=== PATIENT | male | born 1985 | race Hispanic/Latino ===

== ENCOUNTER 2022-01-15 02:15 | Emergency (ER) | payer OTHER ==
[~2022-01-15] VITALS: Ht 180.3 cm; Wt 113.4 kg
[2022-01-15] MEDS ORDERED: 0.9%NACL 1000ML 1,000 ML IV ONE (03:00)
[2022-01-15 03:26] LABS: BASOPHILS % (AUTO) 0.2 % (0.0-5.0); EOSINOPHILS % (AUTO) 1.3 % (0.0-8.0); HEMATOCRIT 41.6 % (42-54); LYMPHOCYTES % (AUTO) 21.7 % (21.0-51.0); MEAN CORPUSCULAR HEMOGLOBIN 26.6 pg (27.0-33.0); MEAN CORPUSCULAR VOLUME 83.2 fL (79-99); MONOCYTES % (AUTO) 6.6 % (3.0-13.0); PLATELET COUNT (AUTO) 150 K/uL (130-400); RED CELL DISTRIBUTION WIDTH 13.4 % (11.0-15.5); WHITE BLOOD COUNT (AUTO) 5.3 K/uL (4.8-10.8)
[2022-01-15 03:36] LABS: CARBON DIOXIDE 26 mmol/L (21-32); CHLORIDE 104 mmol/L (101-111); CREATININE 1.2 mg/dL (0.5-1.5); GLOMERULAR FILTR. RATE CALC 73 mL/min (>60); GLUCOSE,RANDOM 111 mg/dL (70-105); POTASSIUM 3.8 mmol/L (3.5-5.1); SODIUM SERUM 137 mmol/L (136-145); UREA NITROGEN, BLOOD 13 mg/dL (7-18)
[2022-01-15 03:40] LABS: ALANINE AMINOTRANSFERASE 63 U/L (12-78); ALBUMIN 3.8 g/dL (3.5-5.0); ALCOHOL, BLOOD 81 mg/dL (0-10); ASPARTATE AMINOTRANSFERASE 25 U/L (10-37); BILIRUBIN,TOTAL 0.3 mg/dL (0.2-1.0); TOTAL PROTEIN, SERUM 7.2 g/dL (6.0-8.3)
[2022-01-15 03:42] LABS: LIPASE < 50 U/L (114-286)
[2022-01-15 03:59] LABS: APPEARANCE,URINE Clear (CLEAR); BILIRUBIN,URINE Negative (NEGATIVE); COLOR,URINE Yellow (YELLOW); GLUCOSE, URINE (UA) Negative (NEGATIVE); KETONES,URINE Negative (NEGATIVE); LEUKOCYTE ESTERASE ,URINE Negative (NEGATIVE); NITRATE,URINE Negative (NEGATIVE); OCCULT BLOOD,URINE Negative (NEGATIVE); PH,URINE 5.5 (5.0-8.0); PROTEIN,URINE Negative (NEGATIVE); UROBILINOGEN,URINE 0.2 mg/dL (0.2-1.0)
[2022-01-15 04:06] LABS: AMPHET/METH SCREEN,URINE NEGATIVE (NEGATIVE); BARBITURATE SCREEN, URINE NEGATIVE (NEGATIVE); BENZODIAZEPINES SCREEN,URINE NEGATIVE (NEGATIVE); CANNABINOID SCREEN,URINE POSITIVE (NEGATIVE); COCAINE SCREEN,URINE NEGATIVE (NEGATIVE); OPIATE SCREEN,URINE NEGATIVE (NEGATIVE); PHENCYCLIDINE SCREEN,URINE NEGATIVE (NEGATIVE)
[2022-01-15] MEDS ORDERED: ONDA4TAB10 PO (04:54)
[2022-01-15 04:57] VITALS: BP 132/78
== END 2022-01-15 05:07 | disposition home or self-care (01) ==
LOC: EDH 02:15
DX: F10.129 Alcohol abuse with intoxication, unspecified (principal); E86.9 Volume depletion, unspecified; Z20.822 Contact with and (suspected) exposure to COVID-19
CPT/HCPCS: 36415; 80053; 80305; 81003; 83690; 85025; 87635; 87804 ×2; 96360; 99283; C9803; J7030

== ENCOUNTER 2024-08-22 03:50 | Emergency (ER) | payer SELFPAY ==
[~2024-08-22] VITALS: Ht 177.8 cm; Wt 99.8 kg
[~2024-08-22 03:50] MED LIST: ONDA-243 PO
--- NOTE | 2024-08-22 04:07 | NUR ---
PATIENT REFUSING BLOOD DRAWS AT THIS TIME.
[2024-08-22 04:20] LABS: ADD UA MICROSCOPIC NO; APPEARANCE,URINE CLEAR (CLEAR); BILIRUBIN,URINE NEGATIVE (NEGATIVE); COLOR,URINE COLORLESS (YELLOW); GLUCOSE, URINE (UA) NEGATIVE (NEGATIVE); KETONES,URINE NEGATIVE (NEGATIVE); LEUKOCYTE ESTERASE ,URINE NEGATIVE Leu/uL (NEGATIVE); NITRATE,URINE NEGATIVE (NEGATIVE); OCCULT BLOOD,URINE NEGATIVE (NEGATIVE); PH,URINE 5.5 (5.0-8.0); PROTEIN,URINE NEGATIVE (NEGATIVE); UROBILINOGEN,URINE 0.2 mg/dL (0.2-1.0)
--- NOTE | 2024-08-22 04:28 | ERN ---
ED Note History of Present Illness Stated Complaint: MEDICAL CLEARANCE, SI, LEFT ANKLE Chief Complaint: Multiple Complaints Time Seen by MD: 04:06 Dictation: This is a 38-year-old male who was brought by police department accompanied by anil for medical clearance. As per the report of the trooper patient was stopped during a traffic stop and he was very uncooperative had slurred speech and appeared intoxicated but was uncooperative and refused to do any tests of sobriety. He was eventually placed on arrest when he requested to use a kee potty and came out and indicated to the troopers that he twisted it is ankle. He denied any loss of consciousness. True per indicated that patient voiced suicidal ideations stating that he would want to end his life, if he had the troopers gun he would end it immediately. This was another reason why he was brought to the ER When I attempted to interview him he appeared angry blunt and refused to answer many questions. Patient refused any blood work. He did allow us to do EKG and x-ray of the ankle. He denied being at any mental health facility in the past denies any auditory hallucinations. Denies any homicidal ideations also. Patient was handcuffed to the back. He refused to answer any questions regarding alcohol ingestion He thought that the true per stopped him because he had a nice vehicle but did not want to tell me the details about his vehicle. When I asked him if I could examine his heart and lungs, he commented that I would be hearing a lot of cr sreedhar from his heart Temperature 98.1 pulse 118 respirations 20 blood pressure 128/82 with a pulse oximetry of 99% on room air Patient had an admission in the past 5 years ago with alcohol intoxication and basically spacing out at that time. Allergies: Coded Allergies: No Known Drug Allergies (Unverified Allergy, Unknown, 01/15/22) Home Meds Active Scripts Ondansetron (Ondansetron Odt) 4 Mg Tab.rapdis, 4 MG PO Q6HPRN, #20 TAB 0 Refills Prov:PAWAN THOMSON MD 01/15/22 Past Medical History Past Medical History: No Pertinent History Surgical History: None Social History: ETOH RN Note Reviewed/Agreed w/PFSH: Yes Review of System Dictation Constitutional: Negative for fever,chills, and weight loss Eyes: Negative for injury, pain,redness, and discharge ENT: Negative for injury,pain or swelling Cardiovascular: Negative for chest pain, palpitations, and edema Respiratory: Negative for shortness of breath, cough, and wheezing, Abdomen/GI: Negative for abdominal pain, nausea, vomiting, diarrhea, and constipation Back: Negative for injury and pain : Negative for injury, bleeding and discharge MS/Extremity: Negative for injury and deformity ankle pain left side Skin: Negative for rash, and discoloration Neuro: Negative for headache, weakness, numbness, tingling, and seizure Psych: Positive for suicide ideation, but denied homicidal ideation, and hallucinations Initial Vital Sign VS Vital Signs Date Time Temp Pulse Resp B/P (MAP) Pulse Ox O2 Delivery O2 Flow Rate FiO2 08/22/24 03:52 98.1 118 20 128/82 99 Room Air 08/22/24 06:28 0 21 Physical Exam Dictation General: awake, alert, NAD appears intoxicated very guarded in answering his limited questions Head/Face: Normocephalic, atraumatic Eyes: PERRL, EOMI, vision at baseline ENT: oral cavity clear, TMs clear, no signs of infection Neck: Trachea midline, supple, no nuchal rigidity Cardiovascular: RRR, normal S1/S2, No MRGs, no JVD Respiratory: CTAB, no respiratory distress, No rales or wheezes Abdomen: Soft, non-tender, non-distended, normal bowel sounds, no guarding or rebound. Skin: Warm, dry, normal turgor, no rash MS/Extremity: Pulses equal, no cyanosis, neurovascular intact, FROM left ankle- no obvious swelling erythema bruising. Neuro: COAx4, GCS 15, strength 5/5, CN 2-12 intact, normal cerebellar exam, normal gait, Psych: Normal behavior, mood, and affect normal Extremities-trace edema without any palpable cords, Homans sign is negative Results (Laboratory/Radiology) Laboratory/Radiology Laboratory Tests Test 08/22/24 04:07 08/22/24 05:49 08/22/24 09:20 08/22/24 11:13 Urine Color COLORLESS (YELLOW) Urine Appearance CLEAR (CLEAR) Urine pH 5.5 (5.0-8.0) Urine Specific [place]iba 1.002 (1.001-1.031) Urine Protein NEGATIVE mg/dL (NEGATIVE) Urine Glucose (UA) NEGATIVE mg/dL (NEGATIVE) Urine Ketones NEGATIVE mg/dL (NEGATIVE) Urine Occult Blood NEGATIVE (NEGATIVE) Urine Nitrate NEGATIVE (NEGATIVE) Urine Bilirubin NEGATIVE mg/dL (NEGATIVE) Urine Urobilinogen 0.2 mg/dL (0.2-1.0) Urine Leukocyte Esterase NEGATIVE Yenifer/uL Urine Opiates Screen NEGATIVE (NEGATIVE) Urine Barbiturates Screen NEGATIVE (NEGATIVE) Urine Phencyclidine Screen NEGATIVE (NEGATIVE) Urine Amphetamines Screen NEGATIVE (NEGATIVE) Urine Benzodiazepines Screen NEGATIVE (NEGATIVE) Urine Cocaine Screen NEGATIVE (NEGATIVE) Urine Marijuana (THC) Screen NEGATIVE (NEGATIVE) White Blood Count 6.1 K/uL (4.8-10.8) Red Blood Count 5.58 MIL/uL (4.50-6.20) Hemoglobin 15.6 g/dL (14.0-18.0) Hematocrit 46.7 % (42-54) Mean Corpuscular Volume 83.7 fL (79-99) Mean Corpuscular Hemoglobin 28.0 pg (27.0-33.0) Mean Corpuscular Hemoglobin Concent 33.4 g/dL (32.0-36.0) Red Cell Distribution Width 13.4 % (11.0-15.5) Platelet Count 175 K/uL (130-400) Mean Platelet Volume 10.4 fL (7.5-10.5) Immature Granulocyte % (Auto) 0.3 % (0-1) Neutrophils (%) (Auto) 66.0 % (40.0-77.0) Lymphocytes (%) (Auto) 25.0 % (21.0-51.0) Monocytes (%) (Auto) 7.0 % (3.0-13.0) Eosinophils (%) (Auto) 1.5 % (0.0-8.0) Basophils (%) (Auto) 0.2 % (0.0-5.0) Neutrophils # (Auto) 4.0 K/uL (1.8-7.7) Lymphocytes # (Auto) 1.5 K/uL (1.0-4.8) Monocytes # (Auto) 0.4 K/uL (0.1-1.0) Eosinophils # (Auto) 0.09 K/uL (0.00-0.70) Basophils # (Auto) 0.01 K/uL (0.00-0.20) Absolute Immature Granulocyte (auto 0.02 K/uL (0-1) Nucleated Red Blood Cells 0.0 % (0.0-0.19) Sodium Level 140 mmol/L (136-145) Potassium Level 4.1 mmol/L (3.5-5.1) Chloride Level 102 mmol/L (101-111) Carbon Dioxide Level 25 mmol/L (21-32) Blood Urea Nitrogen 12 mg/dL (7-18) Creatinine 1.1 mg/dL (0.5-1.3) Glomerular Filtration Rate Calc 89 mL/min (>90) Random Glucose 111 mg/dL (70-105) H Total Calcium 8.6 mg/dL (8.5-10.1) Salicylates Level < 2.8 mg/dL (2.8-20.0) L Acetaminophen Level < 1 mcg/mL (10-29) L Serum Alcohol 168 mg/dL (0-10) H 95 mg/dL (0-10) H 57 mg/dL (0-10) H ED Course ED Course Orders Procedure Category Date Status Time Ankle Comp 3vws Lt RAD 08/22/24 Resulted 03:54 Cbc With Differential LAB 08/22/24 Complete 03:54 Basic Metabolic Panel LAB 08/22/24 Complete 03:54 Urinalysis Profile LAB 08/22/24 Complete 03:54 Drug Screen Urine LAB 08/22/24 Complete 03:54 Alcohol, Blood LAB 08/22/24 Complete 03:54 Salicylate LAB 08/22/24 Complete 03:54 Acetaminophen LAB 08/22/24 Complete 03:54 12 Lead Ekg Tracing- EKG 08/22/24 Logged Technical 03:54 Ankle Stirrup Splint ETHAN.ER 08/22/24 In Process 05:02 Alcohol, Blood LAB 08/22/24 Complete 09:05 Alcohol, Blood LAB 08/22/24 Complete 11:05 Vital Signs Date Time Temp Pulse Resp B/P (MAP) Pulse Ox O2 Delivery O2 Flow Rate FiO2 08/22/24 13:07 97.9 74 20 135/75 95 Room Air* 0 08/22/24 08:34 98.4 86 16 124/81 98 Room Air* 0 08/22/24 06:28 87 18 136/79 98 Room Air* 0 08/22/24 03:52 98.1 118 20 128/82 99 Room Air Patient adamantly refused any blood work. Awaiting warrant from trooper 4:57 a.m. urinalysis is negative urine drug screen is negative. Patient still refusing any blood work against medical advice.. 5:30 a.m.-[facility] troopers and police department obtained a warrant and blood work was drawn. 6:15 a.m. CBC BNP 7 are within normal limits. Serum ETOH level is 168. Patient needs to sober up before he can be medically cleared from our standpoint. Advised police officers about the alcohol levels and he may at least need 3-4 hours to sober up before we could clear him Medical Decision Making MDM MDM: Differential diagnosis: Suicidal ideation, alcohol intoxication, Patient was evaluated by Psychiatric Facility but does not meet criteria for admission. Patient is currently under the custody of law enforcement will be discharged to their care. Problem List Problem List: (1) Left ankle sprain (2) Suicidal ideations (3) Alcohol intoxication DX & DISP Disposition: Discharge Departure Impression: Primary Impression: Suicidal ideations Additional Impressions: Alcohol intoxication, Left ankle sprain Condition: Stable Additional Instructions: FOLLOW-UP WITH PRIMARY CARE PROVIDER IN 1 TO 2 DAYS. TAKE MEDICATIONS DIRECTED HERE IN THE EMERGENCY ROOM. OKAY TO CONTINUE HOME MEDICATIONS UNLESS OTHERWISE DISCUSSED DURING YOUR VISIT IN THE EMERGENCY ROOM TODAY. RETURN TO YOUR NEAREST EMERGENCY ROOM IF SYMPTOMS WORSEN OR IF THERE IS NO IMPROVEMENT. CALL 911 IF YOU NEED IMMEDIATE ASSISTANCE. TAKE TYLENOL UEFN-MAX-MCMCBSG NEEDED AND IF NO CONTRAINDICATIONS ARE PRESENT. INCREASE ORAL HYDRATION. A WOUND CULTURE OR URINE CULTURE WAS ORDERED HERE IN THE EMERGENCY ROOM DEPARTMENT PLEASE FOLLOW-UP WITH PRIMARY CARE PROVIDER AND ADVISE THEM TO GET REPEAT PORTS FROM OUR FACILITY. IF YOU HAD ANY SWEETIE WRAP/SPLINTS THAT WERE APPLIED HERE, PLEASE DO NOT REMOVE THEM UNTIL YOU SEE YOUR PRIMARY CARE OR SPECIALTY. Referrals: Referrals: SELF,REFERRAL (PCP) GUILLERMO JOVEL MD Time of Disposition: 14:16 RUFUS SHARP MD Aug 22, 2024 04:28 ERLINDA LO MD Aug 22, 2024 14:18
[2024-08-22 04:30] LABS: AMPHET/METH SCREEN,URINE NEGATIVE (NEGATIVE); BARBITURATE SCREEN, URINE NEGATIVE (NEGATIVE); BENZODIAZEPINES SCREEN,URINE NEGATIVE (NEGATIVE); CANNABINOID SCREEN,URINE NEGATIVE (NEGATIVE); COCAINE SCREEN,URINE NEGATIVE (NEGATIVE); OPIATE SCREEN,URINE NEGATIVE (NEGATIVE); PHENCYCLIDINE SCREEN,URINE NEGATIVE (NEGATIVE)
--- NOTE | 2024-08-22 05:44 | NUR ---
[facility].
[2024-08-22 06:11] LABS: BASOPHILS # (AUTO) 0.01 K/uL (0.00-0.20); BASOPHILS % (AUTO) 0.2 % (0.0-5.0); EOSINOPHILS # (AUTO) 0.09 K/uL (0.00-0.70); EOSINOPHILS % (AUTO) 1.5 % (0.0-8.0); HEMATOCRIT 46.7 % (42-54); IMMATURE GRANULOCYTE ABSOLUTE 0.02 K/uL (0-1); LYMPHOCYTES # (AUTO) 1.5 K/uL (1.0-4.8); MEAN CORPUSCULAR HGB CONC 33.4 g/dL (32.0-36.0); MEAN CORPUSCULAR VOLUME 83.7 fL (79-99); MONOCYTES # (AUTO) 0.4 K/uL (0.1-1.0); PLATELET COUNT (AUTO) 175 K/uL (130-400); RED BLOOD CELL COUNT(AUTO) 5.58 MIL/uL (4.50-6.20); RED CELL DISTRIBUTION WIDTH 13.4 % (11.0-15.5); WHITE BLOOD COUNT (AUTO) 6.1 K/uL (4.8-10.8)
[2024-08-22 06:22] LABS: CARBON DIOXIDE 25 mmol/L (21-32); CHLORIDE 102 mmol/L (101-111); CREATININE 1.1 mg/dL (0.5-1.3); GLOMERULAR FILTR. RATE CALC 89 mL/min (>90); GLUCOSE,RANDOM 111 mg/dL (70-105); POTASSIUM 4.1 mmol/L (3.5-5.1); SODIUM SERUM 140 mmol/L (136-145); UREA NITROGEN, BLOOD 12 mg/dL (7-18)
[2024-08-22 06:26] LABS: ALCOHOL, BLOOD 168 mg/dL (0-10)
[2024-08-22 06:28] LABS: ACETAMINOPHEN < 1 mcg/mL (10-29); SALICYLATE < 2.8 mg/dL (2.8-20.0)
--- NOTE | 2024-08-22 06:28 | NUR ---
DPS AT BEDSIDE.
--- NOTE | 2024-08-22 08:28 | HMCIMG ---
ANKLE COMP 3VWS LT REASON: TWISTED WHILE USING RESTROOM TECHNIQUE: 3 views were obtained. FINDINGS: There is no evidence of fracture or dislocation. There is no joint effusion. The soft tissues appear unremarkable. There is no evidence of a radiopaque foreign body. IMPRESSION: No acute findings.
--- NOTE | 2024-08-22 10:12 | NUR ---
SPOKE TO [employer]ISIS HOTLINE WORKER, SHE WILL NOTIFY [employer]ANCH HANDCAPTAIN WAITER/WAITRESS TO COME SCREEN PT ONCE PTS ALCOHOL IS LESS THAN 80. MADE HAMILTON WITH PT AWARE.
--- NOTE | 2024-08-22 11:32 | NUR ---
MADE [employer]OPICAL CRISIS HOTLINE WORKER AWARE OF NEW ALCOHOL BLOOD LEVEL. HE WILL MAKE SCREENER AWARE TO COME BARAK BURGESS.
[2024-08-22 14:17] VITALS: BP 131/71; PULSE 77; RESP 18; TEMP 97.1; O2SAT 96
--- NOTE | 2024-08-22 14:18 | NUR ---
PATIENT DENIES SELF HARM. PATIENT SCREENED BY [facility] AND DID NOT MEET CRITERIA.
== END 2024-08-22 14:24 ==
LOC: EDH 03:50
DX: S93.492A Sprain of other ligament of left ankle, initial encounter (principal); R45.851 Suicidal ideations; F10.129 Alcohol abuse with intoxication, unspecified; Z79.899 Other long term (current) drug therapy; X58.XXXA Exposure to other specified factors, initial encounter; Y93.89 Activity, other specified; Y92.89 Other specified places as the place of occurrence of the external cause; Y99.8 Other external cause status
CPT/HCPCS: 99285; 80048; 80305; 85025; 36415; 73610; 81003; G0481